=== PATIENT | female | born 1995 | race Caucasian/White ===

== ENCOUNTER 2020-08-24 11:19 | Emergency (ER) | payer OTHER ==
[~2020-08-24] VITALS: Ht 175.3 cm; Wt 72.6 kg
--- NOTE | 2020-08-24 11:41 | NUR ---
The patient bibs for c/o "I have ovarian cysts now having pain lower abdomen". Rates pain 7/10. Abdomen soft and non-distended. Denies SOB. Respiration regular and unlabored. Will continue to monitor the patient.
--- NOTE | 2020-08-24 11:58 | NUR ---
Pt made aware of plan of care. Reclining in [facility] NO obvious distress
[2020-08-24 12:06] LABS: BILIRUBIN,URINE Negative (NEGATIVE); COLOR,URINE YELLOW (YELLOW); LEUKOCYTE ESTERASE ,URINE Negative (NEGATIVE); NITRITE, URINE Negative (NEGATIVE); PROTEIN,URINE Negative (NEGATIVE); UGLUCOSE Negative (NEGATIVE); UROBILINOGEN,URINE 0.2 EU/dL (0.2)
[2020-08-24 12:07] LABS: BACTERIA,URINE Few /HPF (None Seen); RBC,URINE 0-2 /HPF (0-2); SQUAMOUS EPITHELIAL CELL,UR Few /HPF (None Seen); WBC,URINE 0-2 /HPF (0-3)
[2020-08-24] MEDS ORDERED: IBUPROFEN 600 MG TABLET PO ONE (12:30)
[2020-08-24] MEDS ORDERED: CEFTRIAXONE 500 MG VIAL ONE (12:32)
[2020-08-24] MEDS ORDERED: IBUPROFEN 600 MG TABLET ONE (12:33)
[2020-08-24] MEDS ORDERED: LIDOCAINE /MPF 1% VIAL 5 ML VIAL ONE (12:34)
[2020-08-24] MEDS: CEFTRIAXONE 500 MG VIAL IM ONE ×2 (12:43→12:56)
[2020-08-24] MEDS ORDERED: DOXY100T2 PO (15:02)
[2020-08-24 15:15] VITALS: BP 145/80
--- NOTE | 2020-08-24 15:15 | NUR ---
Patient discharged to home in stable condition. Written and verbal after care instructions given. Patient verbalizes understanding of instruction.
== END 2020-08-24 15:16 | disposition home or self-care (01) ==
LOC: ER 11:35
DX: Z11.3 Encounter for screening for infections with a predominantly sexual mode of transmission (principal); N83.202 Unspecified ovarian cyst, left side; N83.201 Unspecified ovarian cyst, right side
CPT/HCPCS: 76856; 81001; 84703; 87086; 87491; 87591; 96365; 99284; J0696; J3490